=== PATIENT | male | born 1940 | race Caucasian/White ===

== ENCOUNTER 2019-04-14 11:56 | Emergency (ER) | payer MEDICARE ==
[~2019-04-14] VITALS: Ht 162.6 cm; Wt 71.8 kg
[~2019-04-14 11:56] MED LIST: ACYCLOVIR800 MG PO; AMOXICILLIN500 MG OR; AMOXICILLIN500 MG PO; ANTI-FUNGAL12 TOP; ASPIRIN325 MG; AUGMENTIN875TAB PO; BENADRYL25 MG PO; CIPROFLOXACN500 MG PO; DOXYCYCL HYC100 MG PO; FLONASE NASAL50 MCG; FLORASTOR250 M1 PO; GABAPENTIN100 MG PO; HYDROCORT2.5 % PO; LIDOCAINE5 % EX; LISINOPRIL10 MG PO; LYRICA100 MG PO; MEDDOSEPAK PO; MELATONIN MAXIM10 MG PO; NIACIN500 M2 PO; OXYCOD/APAP1 TA4 PO; POTASSIUM PO; PREDNISONE10 MG PO; PREDNISONE20 MG PO; SERTRALINE HCL100 MG PO; SM ASPIRIN81 MG; SUPER B COMPLEX1 CAP PO; TENORMIN50 MG PO; TESSALON200 MG PO; TOBRAMYCIN0.3 % OD; TRIAMCINOLON0.11 EX; ZITHROMAX500 MG PO
[2019-04-14 12:45] LABS: HEMATOCRIT 41.8 % (39.0-50.0); HEMOGLOBIN 14.8 g/dl (14.0-18.0); IMMATURE GRANULOCYTES 1.5 % (0.0-5.0); MEAN CELL VOLUME 87.1 fL CALC (80.0-100.0); MEAN CORPUSCULAR HGB 30.8 pG CALC (26.0-32.0); MEAN CORPUSCULAR HGB CONC 35.4 g/L CALC (32.0-36.0); NEUT# 5.53 thou/uL (1.82-7.42); RED BLOOD COUNT 4.8 mill/uL (4.70-6.10); RED CELL DISTRI WIDTH 12.3 % (11.5-15.5)
[2019-04-14] MEDS ORDERED: LOSARTAN POTASS25 MG PO (12:50)
[2019-04-14] MEDS ORDERED: METOPROL TAR25 MG PO (12:50)
[2019-04-14 13:06] LABS: ALKALINE PHOSPHATASE 61 u/l (38-126); ANION GAP 13 (6-22 (CALC)); BILIRUBIN, TOTAL 0.9 mg/dL (0.0-1.4); BUN 21 mg/dL (8-23); BUN/CREATININE RATIO 24 (12-20 (CALC)); CARBON DIOXIDE 30 mmol/l (22-30); CHLORIDE 95 mmol/l (95-108); CREATININE 0.9 mg/dL (0.7-1.3); GFR > 60 ML/MIN (>=60 (CALC)); GFR FOR AFR.AMER. > 60 ML/MIN (>=60 (CALC)); LIPASE 35 u/l (23-300); POTASSIUM 3.6 mmol/l (3.5-5.1); SGOT/AST 21 u/l (19-48); SODIUM 135 mmol/l (137-146); TOTAL PROTEIN 7.5 g/dL (6.3-8.2)
[2019-04-14 14:18] LABS: URINE BILIRUBIN - DIPSTICK NEGATIVE (NEGATIVE); URINE BLOOD DIPSTICK NEGATIVE (NEGATIVE); URINE COLOR YELLOW; URINE GLUCOSE - DIPSTICK NEGATIVE (NEGATIVE); URINE KETONE TRACE mg/dL (NEGATIVE); URINE LEUK ESTERASE NEGATIVE (NEGATIVE); URINE NITRITE - DIPSTICK NEGATIVE (Negative); URINE PROTEIN - DIPSTICK TRACE mg/dL (NEG-TRACE); URINE SPECIFIC GRAVITY >=1.030; URINE UROBILINOGEN - DIPSTICK 0.2 E.U./dL (0.2)
[2019-04-14] MEDS ORDERED: METRONIDAZOL500 MG PO (14:30)
[2019-04-14] MEDS ORDERED: CIPROFLOXACN500 MG PO (14:30)
[2019-04-14 14:55] VITALS: BP 156/77
== END 2019-04-14 14:55 | disposition home or self-care (01) ==
LOC: ED 11:56
PROVIDERS: Family Medicine
DX: K57.32 Diverticulitis of large intestine without perforation or abscess without bleeding (principal); R22.2 Localized swelling, mass and lump, trunk; I10 Essential (primary) hypertension
CPT/HCPCS: Q9967